=== PATIENT | female | born 1960 | race Caucasian/White ===

== ENCOUNTER 2017-06-15 12:59 | Emergency (ER) | payer OTHER ==
[~2017-06-15] VITALS: Ht 172.7 cm; Wt 119.9 kg
[~2017-06-15 12:59] MED LIST: FIORICET 50-301 EACH PO; TYLENOL WITH C1 EACH PO; ZOFRAN4 MG PO
[2017-06-15] MEDS ORDERED: OMEPRAZOLE20 MG PO (13:47)
[2017-06-15] MEDS ORDERED: LEVOTHYROXINE125 MCG PO (13:48)
[2017-06-15] MEDS ORDERED: ATARAX,VISTARIL25 MG PO (13:49)
[2017-06-15] MEDS ORDERED: VENLAFAXINE HC150 M1 PO (13:50)
[2017-06-15] MEDS ORDERED: MELOXICAM7.5 MG PO (13:50)
[2017-06-15] MEDS ORDERED: COZAAR100 MG PO (13:50)
[2017-06-15 13:51] LABS: HEMATOCRIT 47.8 % (36.0-46.0); MCH 28.5 PG (29.0-34.0); MCHC 32.4 G/DL (30.0-36.0); MCV 87.9 FL (83-99); MEAN PLAT.VOLUME 9.2 uM^3 (9.5-12.4); PLATELET COUNT 318 K/uL (156-360); RBC DIS.WIDTH-CV 12.8 % (11.8-14.6); RBC DIS.WIDTH-SD 41.1 % (39-53); RED BLOOD COUNT 5.44 M/uL (3.80-5.20)
[2017-06-15 14:01] LABS: CHLORIDE 105 mEq/L (99-109); SODIUM 139 mEq/L (136-147)
[2017-06-15 14:02] LABS: GLUCOSE 89 mg/dL (70-99)
[2017-06-15 14:04] LABS: ANION GAP 10 MEQ/L (2-14)
[2017-06-15 14:06] LABS: GFR ESTIMATE (CALCULATED) > 59 mL/min/
[2017-06-15 14:07] LABS: UREA NITROGEN (BUN) 12 mg/dL (9-23)
[2017-06-15 14:13] LABS: TROP-I INTERPRETATION NEGATIVE; TROPONIN-I < 0.01 ng/mL (0.0-0.30)
[2017-06-15] MEDS ORDERED: LEVAQUIN750 MG PO (14:43)
[2017-06-15 14:58] VITALS: BP 125/80
== END 2017-06-15 15:02 | disposition home or self-care (01) ==
LOC: EME 12:59
DX: J18.9 Pneumonia, unspecified organism (principal); I10 Essential (primary) hypertension
CPT/HCPCS: 71020; 80048; 84484; 85027; 93005; 99281; 99283

== ENCOUNTER 2018-04-14 20:05 | Emergency (ER) | payer OTHER ==
[~2018-04-14] VITALS: Ht 172.7 cm; Wt 113.6 kg
[~2018-04-14 20:05] MED LIST changes: +ATARAX,VISTARIL25 MG PO; +COZAAR100 MG PO; +LEVAQUIN750 MG PO; +LEVOTHYROXINE125 MCG PO; +MELOXICAM7.5 MG PO; +OMEPRAZOLE20 MG PO; +VENLAFAXINE HC150 M1 PO
[2018-04-14 20:59] LABS: APPEARANCE CLEAR ((CLEAR)); BILIRUBIN NEGATIVE; BLOOD NEGATIVE; COLOR YELLOW ((YELLOW)); GLUCOSE (STRIP) NEGATIVE; KETONES NEGATIVE; LEUKOCYTES NEGATIVE; NITRITE NEGATIVE; PROTEIN (STRIP) NEGATIVE; UCUL ADDED? NO; UROBILINOGEN 0.2 MG/DL (0.2-1.0)
[2018-04-14 21:09] LABS: HEMATOCRIT 43.2 % (36.0-46.0); HEMOGLOBIN 14.7 G/DL (11.9-15.5); MCH 29.8 PG (29.0-34.0); MCV 87.6 FL (83-99); PLATELET COUNT 236 K/uL (156-360); RBC DIS.WIDTH-CV 12.8 % (11.8-14.6); RED BLOOD COUNT 4.93 M/uL (3.80-5.20); WHITE BLOOD COUNT 9.1 K/uL (4.1-10.2)
[2018-04-14 21:19] LABS: ALBUMIN 4.1 g/dL (3.2-4.8); CHLORIDE 105 mEq/L (99-109); POTASSIUM 4.1 mEq/L (3.7-5.4); SODIUM 138 mEq/L (136-147)
[2018-04-14 21:21] LABS: GLUCOSE 90 mg/dL (70-99); TOTAL PROTEIN 7.4 g/dL (6.4-8.3)
[2018-04-14 21:23] LABS: TOTAL BILIRUBIN 0.4 mg/dL (0.0-1.0)
[2018-04-14 21:25] LABS: ALKALINE PHOSPHATASE 107 IU/L (3-129); CREATININE 0.8 mg/dL (0.6-1.3); GFR ESTIMATE (CALCULATED) > 59 mL/min/
[2018-04-14 21:26] LABS: UREA NITROGEN (BUN) 14 mg/dL (9-23)
[2018-04-14 21:27] LABS: AST (GOT) 17 IU/L (2-34)
[2018-04-14 21:28] LABS: ALT (GPT) 20 IU/L (3-49)
[2018-04-14] MEDS ORDERED: LIDODERM 5% P1 PATCH TD (21:45)
[2018-04-14] MEDS ORDERED: FLEXERIL10 MG PO (21:45)
[2018-04-14 22:00] VITALS: BP 147/87
== END 2018-04-14 22:05 | disposition home or self-care (01) ==
LOC: EME 20:05
PROVIDERS: Physician Assistant
DX: M54.5 Low back pain (principal); M51.36 Other intervertebral disc degeneration, lumbar region; I10 Essential (primary) hypertension; G43.909 Migraine, unspecified, not intractable, without status migrainosus; F41.9 Anxiety disorder, unspecified; F32.9 Major depressive disorder, single episode, unspecified
CPT/HCPCS: 72110; 80053; 81003; 85027; 99281; 99284